=== PATIENT | male | born 1950 ===

== ENCOUNTER 2016-09-02 21:16 | Observation (INO) | payer MEDICARE ==
[2016-09-02 21:16] VITALS: BMI 28.5
[2016-09-02 21:24] VITALS: BP 125/74; PULSE 93; RESP 16; TEMP 97.7; O2SAT 98
--- NOTE | 2016-09-02 22:27 | ED PDOC ---
Syncope/Near Syncope/Dizzyness Time Seen by Provider: 09/02/16 21:41 Chief Complaint (Nursing): Syncope Chief Complaint (Provider): Dizzy History Per: Patient Additional Complaint(s): 66 yo male, PMH of HTN, High Cholesterol and DM Type II, presents to ED via BLS for evaluation of dizziness and vomiting that developed around 20:00 As per EMS, family member reports LOC which lasted 15 minutes. Pt's daughter at the bedside and reports Pt was seated and maintained his seated position while vomiting. Pt vomited 2 x and when he opened his eyes, he did not recall vomiting. Patient arrives awake, alert, oriented x 3, c/o vertigo- primarily with movement. No headache, no tinnitus, no visual changes, no changes in speech, no weakness. Past Medical History Reviewed: Nursing Documentation, Vital Signs Vital Signs: Last Vital Signs Temp 97.7 F 09/02/16 21:19 Pulse 93 H 09/02/16 21:19 Resp 16 09/02/16 21:19 BP 125/74 09/02/16 21:19 Pulse Ox 98 09/02/16 21:19 - Medical History PMH: Diabetes, HTN, Hypercholesterolemia, Kidney Stones, Chronic Kidney Disease - Surgical History Surgical History: No Surg Hx - Family History Family History: States: Unknown Family Hx - Living Arrangements Living Arrangements: With Family - Social History Current smoker - smoking cessation education provided: No Alcohol: None Drugs: Denies - Home Medications Home Medications: Ambulatory Orders Medication Instructions Recorded Benazepril Hydrochloride 40 mg PO DAILY 10/06/14 [Benazepril] amLODIPine [Norvasc] 10 mg PO DAILY 10/06/14 Pravastatin Sodium [Pravastatin] 2 tab PO DAILY 06/23/15 Meclizine [Meclizine*] 25 mg PO Q6 #30 tab 09/03/16 - Allergies Allergies/Adverse Reactions: Allergies Allergy/AdvReac Type Severity Reaction Status Date / Time No Known Allergies Allergy Verified 09/02/16 21:19 Review of Systems ROS Statement: Except As Marked, All Systems Reviewed And Found Negative Gastrointestinal: Positive for: Nausea, Vomiting Neurological: Positive for: Dizziness Physical Exam - Reviewed Nursing Documentation Reviewed: Yes Vital Signs Reviewed: Yes - Physical Exam Appears: Positive for: Well, Non-toxic, No Acute Distress Head Exam: Positive for: ATRAUMATIC, NORMAL INSPECTION, NORMOCEPHALIC Skin: Positive for: Normal Color, Warm, DRY Eye Exam: Positive for: EOMI, Normal appearance, PERRL ENT: Positive for: Normal ENT Inspection Neck: Positive for: Normal, Painless ROM Cardiovascular/Chest: Positive for: Regular Rate, Rhythm Respiratory: Positive for: CNT, Normal Breath Sounds Gastrointestinal/Abdominal: Positive for: Normal Exam, Bowel Sounds, Soft Back: Positive for: Normal Inspection Extremity: Positive for: Normal ROM Neurologic/Psych: Positive for: Alert, Oriented - Laboratory Results Result Diagrams: 09/02/16 23:30 09/02/16 23:30 - ECG O2 Sat by Pulse Oximetry: 98 Medical Decision Making Medical Decision Making: EKG NSR at 84 bpm, no axis deviation, no ST elevations, as read by DIEGO Pt placed on abrasive band winder, vitals remain stable Diagnostics ordered CBC resulted WNL COMP with BUN elevated at 29. IVF running. CT IMPRESSION: 1. The sellar region appears slightly prominent. Please correlate clinically and if indicated this could be further evaluated with MRI. 2. No evidence for acute intracranial abnormality or displaced calvarial fracture. 3. Additional incidental and/or chronic findings as described. Pt educated on all results and demonstrated full understanding. Pt doing well on re-eval, no complaints of dizziness, headache or nausea at this time. Pt reports that he will follow up with his PMd, asking to go home. Disposition - Clinical Impression Clinical Impression: Vertigo - Patient ED Disposition Is Patient to be Admitted: No - Disposition Disposition: Routine/Home Disposition Time: 05:50 Condition: GOOD - POA Present On Arrival: None
[2016-09-02 23:58] LABS: BASO % 0.1 % (0.0-2.0); EOS % 0.4 % (0.0-4.0); LYMPH # 0.5 K/uL (1.0-4.3); LYMPH % 4.4 % (20.0-40.0); MEAN CELL VOLUME 82.6 fl (80.0-94.0); MEAN CORPUSCULAR HEMOGLOBIN 26.5 pg (27.0-31.0); MEAN CORPUSCULAR HGB CONC 32.1 g/dL (33.0-37.0); MEAN PLATELET VOLUME 8.4 fl (7.2-11.7); MONO # 0.9 K/uL (0.0-0.8); NEUT # 9.4 K/uL (1.8-7.0); NEUT % 87.1 % (50.0-75.0); PLATELET COUNT 195 K/uL (130-400); RED CELL DISTRIBUTION WIDTH 14.5 % (11.5-14.5); WHITE BLOOD COUNT 10.8 K/uL (4.8-10.8)
[2016-09-03 00:12] LABS: ALB/GLOB RATIO 1.2 (1.0-2.1); ALKALINE PHOSPHATASE 54 U/L (38-126); ALT/SGPT 35 U/L (21-72); AST/SGOT 36 U/L (17-59); BILIRUBIN,TOTAL 0.3 mg/dl (0.2-1.3); BLOOD UREA NITROGEN 29 mg/dl (9-20); CALCIUM 9.5 mg/dL (8.4-10.2); CARBON DIOXIDE 27 mmol/L (22-30); CHLORIDE 103 mmol/L (98-107); GFR AFRICAN-AMERICAN > 60; GLUCOSE,RANDOM 158 mg/dL (75-110); SODIUM 143 mmol/l (132-148); TOTAL PROTEIN 7.7 G/DL (6.3-8.2)
--- NOTE | 2016-09-03 00:15 | CT ---
EXAM: CT Head Without Intravenous Contrast. CLINICAL HISTORY: 66 years old, male; Signs and symptoms; Dizziness; Additional info: Dizzy TECHNIQUE: Axial computed tomography images of the head/brain without intravenous contrast. This CT exam was performed using one or more of the following dose reduction techniques: automated exposure control, adjustment of the mA and/or kV according to patient size, and/or use of iterative reconstruction technique. Coronal and sagittal reformatted images were created and reviewed. COMPARISON: No relevant prior studies available. FINDINGS: Brain: There is no evidence of intracranial hemorrhage. No evidence of acute territorial infarction. No significant white matter disease. No edema. Ventricles: Unremarkable. No ventriculomegaly. Bones/joints: Unremarkable. No acute fracture. Soft tissues: Unremarkable. Sinuses: Unremarkable as visualized. No acute sinusitis. Mastoid air cells: Unremarkable as visualized. No mastoid effusion. Sella: The sellar region appears slightly prominent. Please correlate clinically and if indicated this could be further evaluated with MRI. IMPRESSION: 1. The sellar region appears slightly prominent. Please correlate clinically and if indicated this could be further evaluated with MRI. 2. No evidence for acute intracranial abnormality or displaced calvarial fracture. 3. Additional incidental and/or chronic findings as described.
[2016-09-03 00:17] LABS: PARTIAL THROMBOPLASTIN TIME 22.2 SECONDS (23.3-32.5)
[2016-09-03 01:36] LABS: EOSINOPHIL 1 % (0-7); NEUTROPHIL 89 % (42-75); REACTIVE LYMPHOCYTES 1 % (0-0); TOTAL CELLS COUNTED 100
--- NOTE | 2016-09-03 08:01 | CARD ---
APPROVED REPORT EKG Measurement Heart [id number] <Conclusion> Normal sinus rhythm Normal ECG
--- NOTE | 2016-09-03 09:42 | RAD ---
HISTORY: dizzy COMPARISON: None available TECHNIQUE: Chest, one view. FINDINGS: Examination limited by habitus and hypoinflation. LUNGS: No focal consolidation. Please note that chest x-ray has limited sensitivity for the detection of pulmonary masses. PLEURA: No significant pleural effusion identified. No definite pneumothorax . CARDIOVASCULAR: Heart size appears top normal. Atherosclerotic calcifications of the aorta. OSSEOUS STRUCTURES: Degenerative changes. VISUALIZED UPPER ABDOMEN: Mild elevation of the right hemidiaphragm. OTHER FINDINGS: None. IMPRESSION: No active disease.
== END 2016-09-03 01:20 | disposition home or self-care (01) ==
LOC: H.ER 21:16 → H.EROBSV 21:30
PROVIDERS: ADMIT Emergency Medicine; ATTEND Emergency Medicine
DX: R42 Dizziness and giddiness (principal); E11.22 Type 2 diabetes mellitus with diabetic chronic kidney disease; N18.9 Chronic kidney disease, unspecified; I12.9 Hypertensive chronic kidney disease with stage 1 through stage 4 chronic kidney disease, or unspecified chronic kidney disease; E78.00 Pure hypercholesterolemia, unspecified
CPT/HCPCS: 36415; 70450; 71010; 80053; 82948; 84484; 85025; 85610; 85730; 93005; 99281; G0378; J2405